=== PATIENT | male | born 1950 | race Caucasian/White ===

== ENCOUNTER 2021-07-18 01:29 | Emergency (ER) | payer MEDICARE, OTHER ==
[~2021-07-18] VITALS: Ht 177.8 cm; Wt 108.9 kg
[2021-07-18 02:33] LABS: HEMOGLOBIN 10.4 gm/dl (14.0-17.5); RED BLOOD COUNT 3.58 M/UL (4.20-5.50)
== END 2021-07-18 05:25 | disposition home or self-care (01) ==
LOC: ER1 01:29
PROVIDERS: Family Medicine
DX: E87.1 Hypo-osmolality and hyponatremia (principal); R60.0 Localized edema
CPT/HCPCS: 80053; 85025; 96365; 99284; J7131